=== PATIENT | female | born 1950 | race Two or more races ===

== ENCOUNTER 2024-04-25 21:16 | Emergency (ER) | payer MEDICAID, SELFPAY ==
[2024-04-25 21:20] VITALS: BMI 28.3
[2024-04-25 22:04] VITALS: BP 173/93; PULSE 90; RESP 18; TEMP 36.5; O2SAT 97
--- NOTE | 2024-04-25 22:05 | EKG_ITS ---
[facility] Test Date: 2024-04-25 Pat Name: MELISSA REESE Department: Room: - Gender: Female Theatre Director: : 1950 Requested By: Naun Mantilla Order Number: [id number] Reading MD: Naun Mantilla Measurements Intervals [place] Rate: 87 P: 38 OK: 134 QRS: -30 QRSD: 105 T: 32 QT: 353 QTc: 426 Interpretive Statements SINUS RHYTHM POSSIBLE LEFT ATRIAL ENLARGEMENT [-0.1mV P-WAVE IN V1/V2] LOW QRS VOLTAGE IN PRECORDIAL LEADS [QRS DEFLECTION < 1.0 mV IN CHEST LEADS] POSSIBLE LEFT VENTRICULAR HYPERTROPHY [VOLTAGE CRITERIA PLUS LAE OR QRS WIDENING] POSSIBLE ANTERIOR MYOCARDIAL INFARCTION , OF INDETERMINATE AGE [30 ms Q WAVE IN V3/V4, OR R < 0.2 mV IN V4] No previous ECG available for comparison /store/S0/[id number].pdf
--- NOTE | 2024-04-25 22:05 | XR_ITS ---
Examination: CT brain head without contrast. 2-D sagittal coronal reconstructions Date and time of exam:April 25, 2024 at 10:15 PM Indications: Headaches with hypertension and pressure beginning 2 weeks ago CTDI: vol (mGy):48.5 DLP: (mGycm):914 Technique: Multiple CT axial sections of the brain have been obtained, 5 mm slice thickness. Contrast has not been administered. 2-D sagittal, coronal reconstructions have been obtained Low dose protocols were performed. One or more of the following dose reduction techniques were used; automated exposure control, adjustment of the mA and/or KV according to patient size, use of iterative reconstruction technique. Findings: No significant ventricular enlargement. Intra-axial or extra-axial hemorrhage density is not seen. No mass effect or midline shift Basal cisterns are not remarkable. Fourth ventricle is midline. Cranial vault intact. Significant chronic pansinusitis Impression: Negative for acute hemorrhage, mass effect or midline shift
--- NOTE | 2024-04-25 22:06 | PD.EDRME ---
Rapid Medical Screening Exam RME Arrival date/time: 04/25/24 21:16 73-year-old female with a history of hypertension reports with complaints of headache weakness and not feeling well x 1 day Chief Complaint: General Adult/Misc Complain Time Seen by Provider: 04/25/24 21:47 Vital signs: Vital Signs Temperature 97.7 F 04/25/24 22:04 Pulse Rate 90 04/25/24 22:04 Respiratory Rate 18 04/25/24 22:04 Blood Pressure 173/93 H 04/25/24 22:04 Pulse Oximetry (%) 97 04/25/24 22:04 Oxygen Delivery Method Room Air 04/25/24 22:04
[2024-04-25 22:39] LABS: Collection Type, Urine Clean Catch
[2024-04-25 22:53] LABS: Bilirubin,Urine Negative (Negative); Blood,Urine Trace (Negative); Clarity,Urine Clear (Clear/Hazy); Color,Urine Colorless (Lt Yel-Yel); Culture Indicated,Urine Not Indicated; Glucose, Urine Negative (Negative); Ketones,Urine Negative (Negative); Leukocyte Esterase,Urine Negative (Negative); Nitrite,Urine Negative (Negative); Protein,Urine Negative (Neg - Trace); RBC,Urine 1 /hpf (0-3); Specific Gravity,Urine 1.008 (1.001-1.035); Squamous Epithelial Cell,Urine < 1 /hpf (0-5); Urobilinogen,Urine Negative mg/dL (0.0-1.0); WBC,Urine 2 /hpf (0-5)
[2024-04-25 23:34] LABS: Basophils % (Auto) 0 % (0-2.5); Eosinophils # (Auto) 0.3 Thou/mm3 (0.0-0.5); Eosinophils % (Auto) 2 % (0-10); Hematocrit 41.1 % (36.0-46.0); Hemoglobin 13.7 g/dL (12.0-16.0); Immature Granulocytes % (Auto) 0 % (0-0); Immature Granulocytes Auto 0.04 Thou/mm3 (0.00-0.00); Lymphocytes # (Auto) 2.5 Thou/mm3 (1.0-4.8); Lymphocytes % (Auto) 21 % (10-50); Mean Corpuscular HGB Conc 33.3 g/dl (31.0-37.0); Mean Corpuscular Hemoglobin 30.9 pg (25.0-35.0); Mean Corpuscular Volume 93 fL (80-100); Monocytes # (Auto) 0.6 Thou/mm3 (0.0-0.8); Monocytes % (Auto) 5 % (0-12); Neutrophils # (Auto) 8.4 Thou/mm3 (1.8-7.7); Neutrophils % (Auto) 71 % (37-80); Nucleated Red Blood Cell % 0 /100 WBC (0); Platelet Count 164 Thou/mm3 (140-440); RDW Standard Deviation 41.3 fL (36.4-46.3); Red Blood Count 4.43 Miln/mm3 (4.00-5.20); White Blood Count 11.9 Thou/mm3 (3.6-11.0)
[2024-04-25 23:38] LABS: Alanine Aminotransferase 25 U/L (10-49); Albumin, Serum 4.9 gm/dL (3.4-4.8); Albumin/Globulin Ratio 1.4 (1.2-2.2); Alkaline Phosphatase 107 U/L (46-116); Anion Gap 10 (7-16); Aspartate Amino Transferase 24 U/L (0-34); BUN/Creatinine Ratio 15 Ratio (12-20); Bilirubin,Total 0.7 mg/dL (0.3-1.2); Blood Urea Nitrogen 12 mg/dL (9-23); Calcium 10.5 mg/dL (8.3-10.6); Calcium (Corrected) 10.5 mg/dL (8.5-10.1); Carbon Dioxide 26.7 mMol/L (20.0-31.0); Chloride 106 mMol/L (98-107); Creatinine (Component) 0.8 mg/dL (0.6-1.3); Globulin 3.4 gm/dL (2.3-3.5); Glucose 126 mg/dL (74-106); Osmolality,Calculated 286 (275-295); Potassium 3.7 mMol/L (3.4-5.1); Sodium 143 mMol/L (136-145); Total Protein 8.3 gm/dL (5.7-8.2); Troponin I < 0.020 ng/mL (0.0-0.045); eGFR > 60 See Note
--- NOTE | 2024-04-25 23:39 | EDNOTE_ITS ---
ED General RME/HPI General Chief complaint: General Adult/Misc Complain Stated complaint: HIGH BP,JUAREZ Time Seen by Provider: 04/25/24 21:47 Arrival date/time: 04/25/24 21:16 Limitations: no limitations RME / HPI RME / HPI narrative: 04/25/24 21:16 73-year-old female with a history of hypertension reports with complaints of headache weakness and not feeling well x [address] [facility] ED Evaluation: 73yo female BIB her daughter presents to the ED for a chief complaint of a headache x today. Daughter states the patient started having headaches 3 weeks ago and was seen at [facility]. She states the patient was told she has high blood pressure, but was not started on any medications. Patient states she started having a pulsating headache today that did not resolve after taking Tylenol, so she came in for evaluation. She denies any dizziness, blurry vision or any other associated symptoms. Related Data Allergies Allergy/AdvReac Type Severity Reaction Status Date / Time Penicillins Allergy Verified 04/25/24 21:18 Review of Systems Review of Systems Systems Reviewed: All systems reviewed, normal except as documented ED Exam General Limitations: Present no limitations General appearance: Present alert and in no apparent distress Head Head exam: Present atraumatic Eye Eye exam: Present normal appearance, PERRL and EOMI ENT ENT exam: Present normal exam, normal oropharynx and mucous membranes moist Neck Neck exam: Present normal inspection, full ROM and trachea midline Chest Chest inspection: Present normal inspection and symmetric chest wall rise Respiratory Respiratory exam: Present normal lung sounds bilaterally Cardiovascular Cardiovascular exam: Present regular rate, normal rhythm and normal heart sounds Abdominal Exam Abdominal exam: Present soft and normal bowel sounds Extremities Exam Extremities exam: Present normal inspection and full ROM Back Exam Back exam: Present normal inspection and full ROM Neurological Exam Neurological exam: Present alert, oriented X3 and CN II-XII intact Psychiatric Psychiatric exam: Present normal affect and normal mood Skin Skin exam: Present warm, dry, intact and normal color Course Quality Measures none Orders Category Date Time Status EKG (ED ONLY) *Do not use* NOW Care 04/25/24 22:[address] head/brain wo con Stat Exams 04/25/24 22:05 Completed EKG (ED Only) Stat Exams 04/25/24 22:05 Draft CBC Stat Lab 04/25/24 22:37 Completed CMP [Comprehensive Metabolic Panel] Stat Lab 04/25/24 22:37 Completed Troponin I Stat Lab 04/25/24 22:37 Completed UA, C/S IF [Urinalysis, C/S if Indicated] Stat Lab 04/25/24 22:24 Completed Reevaluation(s) Reevaluation #1: Blood pressure has improved to 140/83. Patient is stable to be discharged home. Time: 00:33 Vital Signs Vital signs: Vital Signs Temperature 97.7 F 04/25/24 22:04 Pulse Rate 90 04/25/24 22:04 Respiratory Rate 18 04/25/24 22:04 Blood Pressure 173/93 H 04/25/24 22:04 Pulse Oximetry (%) 97 04/25/24 22:04 Oxygen Delivery Method Room Air 04/25/24 22:04 Pulse ox is 97% on room air, which is normal according to my interpretation. [facility] Patient data External records reviewed:: [facility] previous records (Per chart review, patient has no previous ED visits or admissions to this facility.) Clinical information provided by:: patient Social determinants that could affect healthcare access:: none Patient has the following chronic illnesses:: HTN How is presenting disease/condition affected by chronic disease/condition?: c aused by Evaluation data The following diagnostics were reviewed and interpreted by me:: lab results, radiology exam(s) and EKG tracing(s) Lab and/or radiology exams considered but not ordered:: none Interpretation Summary: WBC count is 11.9, CMP is normal, Troponin is normal, UA is unremarkable, according to my interpretation. EKG done at 2209. NSR, rate of 87, normal axis, normal intervals, no acute ST or T wave changes, according to my interpretation. [place] [facility] Report Signed Patient: MELISSA REESE Record#: [id number] Birthdate: 1950 Age/Sex: 73 / F Location: [facility] Attending Dr: Ordering Physician: Naun Mantilla PA-C Date of Service: 04/25/24 Procedure(s): CT head/brain wo con Accession Number(s): [id number] cc: Jose Allen MD; Naun Mantilla PA-C~ Examination: CT brain head without contrast. 2-D sagittal coronal reconstructions Date and time of exam:April 25, 2024 at 10:15 PM Indications: Headaches with hypertension and pressure beginning 2 weeks ago CTDI: vol (mGy):48.5 DLP: (mGycm):914 Technique: Multiple CT axial sections of the brain have been obtained, 5 mm slice thickness. Contrast has not been administered. 2-D sagittal, coronal reconstructions have been obtained Low dose protocols were performed. One or more of the following dose reduction techniques were used; automated exposure control, adjustment of the mA and/or KV according to patient size, use of iterative reconstruction technique. Findings: No significant ventricular enlargement. Intra-axial or extra-axial hemorrhage density is not seen. No mass effect or midline shift Basal cisterns are not remarkable. Fourth ventricle is midline. Cranial vault intact. Significant chronic pansinusitis Impression: Negative for acute hemorrhage, mass effect or midline shift Dictated By: Jose Allen MD Signed By: <Electronically signed by Jose Allen MD in OV> 04/25/24 8063 Medications Medications considered but not ordered:: none Medication administrations:: none Consultations Consultation(s) initiated? (list below): No Diagnosis Differential Diagnosis ED Complaint MDM: hypertensive emergency, hypertensive urgency, tension headache, migraine Most likely diagnosis given after review of the tests above:: see below Admission Indicated Admission indicated?: not indicated Explain why admission is indicated or not indicated:: Admission criteria not met. Admission Request Was there a request for admission?: No Disposition Plan Disposition Plan: Discharge Discharge Attestation Discharge Attestation: The patient and all family members were given an opportunity to ask questions and understood the discharge instructions. Discharge instructions specifically effects, indications for sooner follow up or return to the emergency department, and the expected course of current diagnosis. Patient condition: Stable Medical Decision Making Differential Diagnosis Differential Diagnosis: hypertensive emergency, hypertensive urgency, tension headache, migraine Lab Data 04/25/24 22:37 04/25/24 22:37 Labs: Lab Results 04/25/24 04/25/24 Range/Units 22:24 22:37 WBC 11.9 H (3.6-11.0) Thou/mm3 RBC 4.43 (4.00-5.20) Miln/mm3 Hgb 13.7 (12.0-16.0) g/dL Hct 41.1 (36.0-46.0) % MCV 93 (80-100) fL MCH 30.9 (25.0-35.0) pg MCHC 33.3 (31.0-37.0) g/dl RDW Std Deviation 41.3 (36.4-46.3) fL Plt Count 164 (140-440) Thou/mm3 Neut % (Auto) 71 (37-80) % Lymph % (Auto) 21 (10-50) % [place] % (Auto) 5 (0-12) % Eos % (Auto) 2 (0-10) % Baso % (Auto) 0 (0-2.5) % Neut # (Auto) 8.4 H (1.8-7.7) Thou/mm3 Lymph # (Auto) 2.5 (1.0-4.8) Thou/mm3 Jerome # (Auto) 0.6 (0.0-0.8) Thou/mm3 Eos # (Auto) 0.3 (0.0-0.5) Thou/mm3 Baso # (Auto) 0.0 (0.0-0.2) Thou/mm3 Immature Gran # (Auto) 0.04 H (0.00-0.00) Thou/mm3 Absolute Nucleated RBC 0.00 (0.00-0.00) Thou/mm3 Immature Gran % 0 (0-0) % Nucleated RBC % 0 (0) /100 WBC Sodium 143 (136-145) mMol/L Potassium 3.7 (3.4-5.1) mMol/L Chloride 106 (98-107) mMol/L Carbon Dioxide 26.7 (20.0-31.0) mMol/L Anion Gap 10 (7-16) BUN 12 (9-23) mg/dL Creatinine 0.8 (0.6-1.3) mg/dL Estim Creat Clear Calc 53.0 L (>60) mL/min eGFR > 60 (60 - ) See Note BUN/Creatinine Ratio 15 (12-20) Ratio Glucose 126 H (74-106) mg/dL Calculated Osmolality 286 (275-295) Calcium 10.5 (8.3-10.6) mg/dL Corrected Calcium 10.5 H (8.5-10.1) mg/dL Total Bilirubin 0.7 (0.3-1.2) mg/dL AST 24 (0-34) U/L ALT 25 (10-49) U/L Alkaline Phosphatase 107 (46-116) U/L Troponin I < 0.020 (0.0-0.045) ng/mL Total Protein 8.3 H (5.7-8.2) gm/dL Albumin 4.9 H (3.4-4.8) gm/dL Globulin 3.4 (2.3-3.5) gm/dL Albumin/Globulin Ratio 1.4 (1.2-2.2) Ur Collection Type Clean Catch Urine Color Colorless A (Lt Yel-Yel) Urine Clarity Clear (Clear/Hazy) Urine pH 6.0 (5.0-7.0) Ur Specific [place] 1.008 (1.001-1.035) Urine Protein Negative (Neg - Trace) Urine Glucose (UA) Negative (Negative) Urine Ketones Negative (Negative) Urine Blood Trace (Negative) Urine Nitrite Negative (Negative) Urine Bilirubin Negative (Negative) Urine Urobilinogen (Auto) Negative (0.0-1.0) mg/dL Ur Leukocyte Esterase Negative (Negative) Urine RBC 1 (0-3) /hpf Urine WBC 2 (0-5) /hpf Ur Squamous Epith Cells < 1 (0-5) /hpf Urine Bacteria None (None) Ur Culture Indicated? Not Indicated Discharge Plan Plan Patient Disposition: HOME (Self Care) Patient condition on transfer: Stable Problem List Clinical Impression: Elevated blood pressure reading Patient/Caregiver Discharge Instructions Additional Instructions: Please continue all your medications as per your primary care physician. Your blood pressure today is 140/83 and that is a stable blood pressure. Please follow instructions as per your primary care physician to see what additional medications they would like to start you on. Return to emergency department for any worsening symptoms, or any other concerns. You can take [id number] Tylenol 650 mg if needed for headache x 2 to 3 days. Print Language: Japanese Stand Alone Forms: Angela Award Info., Patient Portal Info Letter
[2024-04-26 00:15] VITALS: BP 140/83; PULSE 92; RESP 18; TEMP 37.1; O2SAT 100
== END 2024-04-26 01:04 | disposition home or self-care (01) ==
LOC: SERX 04-26 00:57
PROVIDERS: Physician Assistant; Emergency Provider Emergency Medicine; PCP Family Medicine
DX: I10 Essential (primary) hypertension (principal); R51.9 Headache, unspecified
CPT/HCPCS: 36415; 70450; 80053; 81001; 84484; 85025; 93005; 99284